=== PATIENT | male | born 1995 | race Caucasian/White ===

== ENCOUNTER 2024-12-30 21:15 | Emergency (ER) | payer OTHER ==
[2024-12-30 21:19] VITALS: BP 146/86; PULSE 97; RESP 22; TEMP 98.1; BMI 25.1
[2024-12-30] MEDS ORDERED: ACETAMINOPHEN 500 MG TABLET (FP) ONE (21:52)
[2024-12-30] MEDS: ACETAMINOPHEN 500 MG TABLET (FP) PO ONE (22:02)
== END 2024-12-30 22:51 | disposition home or self-care (01) ==
LOC: JERFT 21:15
DX: M54.50 Low back pain, unspecified (principal)
CPT/HCPCS: 99283-25